=== PATIENT | male | born 1955 | race Caucasian/White ===

== ENCOUNTER 2018-02-04 16:18 | Inpatient (IN) | payer MEDICARE, MEDICAID ==
[2018-02-04] MEDS ORDERED: Docusate Sodium 100 MG Cap PO PRN (18:43)
[2018-02-04] MEDS ORDERED: Acetaminophen 325 MG Tab PO PRN (18:43)
[2018-02-04] MEDS ORDERED: [UNRECOGNIZED DRUG - OTHER] TOP PRN (18:49)
[2018-02-04] MEDS ORDERED: Hyoscyamine 0.125 MG Tab.SL PO PRN (18:58)
--- NOTE | 2018-02-04 18:58 | PCM.HP ---
H&P History of Present Illness - General Date of Service: 02/04/18 Admit Problem/Dx: Admission Diagnosis/Problem Admission Diagnosis/Problem Community acquired pneumonia Source of Information: Old Records, Provider History Limitations: Reports: Other (Patient is nonverbal, no staff present.) - History of Present Illness Initial Comments - Free Text/Narative: Patient is a 62-year-old male with severe developmental disabilities from the [facility] who was admitted for pneumonia today. The patient was seen by a Danni Louie at [place] on on 01/28/18 and chest x-ray showed a pneumonia of the left lower lobe. Patient was started on Augmentin and treated as an outpatient. He came back in today with no improvement in his cough or other symptoms and was referred to me for admission. When he presented on the , he had symptoms of congestion, productive cough and lethargy for 10 days. He appeared to be short of breath when lying flat and O2 sats were at 91% on room air. He was afebrile at that time. CBC at that time showed a normal white count of 6.2, hemoglobin 15.7, platelets 174. Chemistries had been done on 01/16 and were not repeated at that visit. Glucose was 93, sodium 143, potassium 4.7, chloride 104, CO2 31, BUN 23, creatinine 0.94, calcium 10, bilirubin less than 0.2, normal LFTs, albumin 3.9. Initial reading of the chest showed enlarged heart, pulmonary vasculature markedly prominent, interstitial markings prominent, CHF with pulmonary edema and question of infiltrate secondary to aspiration pneumonia or inhalation damage. Today's x-ray has not been read. I compared the 2 x-rays myself and the images are extremely poor quality, poorly penetrated, patient unable to take a deep breath, so I think it' s difficult to say whether there was an infiltrate or failure. However I do feel it is more consistent with a right infiltrate with underpenetration. Past medical history: #1 developmental disabilities with cerebral palsy. 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 Perineal dermatitis #11 lower extremity dependent edema #12 osteoporosis Medications are to be given in liquid or food forearm, we position every 2 hours during the night and every hour of 3 when in the wheelchair. Full staff assist to eat or drink. Looks like he has a. Diet with honey thickened liquids. Social history: Unknown other than the patient currently lives at this longterm. Family history: Unknown - Related Data Allergies/Adverse Reactions: Allergies Allergy/AdvReac Type Severity Reaction Status Date / Time adhesive Allergy Rash Verified 02/04/18 18:53 vicodin Allergy Cannot Uncoded 02/04/18 18:53 Remember Home Medications: Home Meds Anita/Min Oil/Jane/Wool Alcoh [Eucerin Creme] 1 applic TOP ASDIRECTED PRN 02/04 [History] Diazepam [Valium] 2 mg PO TID 02/04/18 [History] Hydrophilic Ointment [Aquaphilic Ointment] 1 applic TOP BID PRN 02/04/18 [ History] Hyoscyamine [Levsin] 0.25 mg PO TID PRN 02/04/18 [History] Listerine/Hydrogen Peroxide 1 applic TOP TID PRN 02/04/18 [History] Multivits w-Fe,Other Min/Lut [Theratrum Complete] 1 each PO DAILY 02/04/18 [ History] Na Phos,M-B/Na Phos,DI-B [Fleet Enema] 133 ml RC ASDIRECTED PRN 02/04/18 [ History] Polyethylene Glycol 3350 [MiraLAX] 17 gm PO DAILY 02/04/18 [History] Selenium Sulfide 1 applic TP ASDIRECTED PRN 02/04/18 [History] Sennosides/Docusate Sodium [Senna S Tablet] 2 each PO DAILY 02/04/18 [History] Sennosides/Docusate Sodium [Senna S Tablet] 4 each PO BEDTIME 02/04/18 [History] Triazolam 0.5 mg PO ASDIRECTED PRN 02/04/18 [History] Vits A and D/White Pet/Lanolin [A and D Ointment] 1 applic TOP ASDIRECTED PRN [History] traZODone 100 mg PO BEDTIME 02/04/18 [History] Past Medical History HEENT History: Reports: Other (See Below) Other HEENT History: astigmastism Cardiovascular History: Reports: Other (See Below) Other Cardiovascular History: mitral valve regurguration, grade2/6 pulmonary systolic murmur Respiratory History: Reports: Pneumonia, Recurrent Musculoskeletal History: Reports: Osteoporosis, Other (See Below) Other Musculoskeletal History: severe lumbar scollosis, quadriplegic. Hematologic History: Reports: Other (See Below) Other Hematologic History: hemachromatosis - Past Surgical History GI Surgical History: Reports: Other (See Below) Other GI Surgeries/Procedures: constipation Social & Family History - Tobacco Use Smoking Status *Q: Never Smoker Second Hand Smoke Exposure: No - Caffeine Use Caffeine Use: Reports: None - Recreational Drug Use Recreational Drug Use: No H&P Review of Systems - Review of Systems: Review Of Systems: ROS reveals no pertinent complaints other than HPI. General: Reports: ROS unobtainable (Patient nonverbal) Exam - Exam Exam: See Below - Vital Signs Vital Signs: Last Vital Signs Temp 35.6 C 02/04/18 16:19 Pulse 58 L 02/04/18 16:19 Resp 22 H 02/04/18 16:19 BP 117/89 02/04/18 16:19 Pulse Ox 90 L 02/04/18 16:19 Weight: 75.251 kg - Exam Quality Assessment: Supplemental Oxygen (Patient removed and will not tolerate.) General: Alert (Nonverbal.) HEENT: PERRLA, Other (Unable to examine as patient unable to cooperate.) Neck: Supple, Trachea Midline Lungs: Decreased Breath Sounds, Crackles, Rhonchi Cardiovascular: Regular Rate, Regular Rhythm (I don't appreciate any murmur) GI/Abdominal Exam: Normal Bowel Sounds, Soft, Non-Tender, No Distention Extremities: Other (Extremities are contracted and wasted but no bruising and skin health looks very good. No sores on the buttocks or genitals.) Psychiatric: Alert - Patient Data Lab Results Last 24 hrs: Lab from here pending. *Q Meaningful Use (ADM) - VTE *Q VTE Criteria *Q: - Stroke *Q Stroke Criteria *Q: - AMI *Q AMI Criteria *Q: - Problem List (1) Aspiration pneumonia SNOMED Code(s): 751250039 ICD Code: J69.0 - PNEUMONITIS DUE TO INHALATION OF FOOD AND VOMIT Status: Acute Current Visit: Yes Problem Details: I suspect based on the patient's clinical presentation and history that he has an aspiration pneumonia. I'm going to cover him with Zosyn. I'd like a swallow evaluation to better assess whether or not he is safe to eat or if he is continuously aspirating. 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 DuoNeb's. No steroids for the time being. (2) Mental retardation SNOMED Code(s): 717896923 ICD Code: F79 - UNSPECIFIED INTELLECTUAL DISABILITIES Status: Acute Current Visit: Yes Problem Details: Staff will work with the patient, we may need one-on-one support while he is here in the hospital as there is no one from the longterm here. (3) CP (cerebral palsy), spastic, quadriplegic SNOMED Code(s): 90199065 ICD Code: G80.0 - SPASTIC QUADRIPLEGIC CEREBRAL PALSY Status: Acute Current Visit: Yes Problem Details: Continue home medications. (4) DVT prophylaxis SNOMED Code(s): 651309637 ICD Code: [id number] - Status: Acute Current Visit: Yes Problem Details: SCDs, Lovenox, PT and OT to evaluate and treat to mobilize as much as possible while here in the hospital. Problem List Initiated/Reviewed/Updated: Yes Orders Last 24hrs: Active Orders 24 hr Category Date Time Status Admission Status [Patient Status] [ADT] Routine ADT 02/04/18 16:19 Active Height and Weight [RC] DAILY Care 02/04/18 18:43 Ordered Intake and Output [RC] QSHIFT Care 02/04/18 18:45 Ordered Notify Provider Vital Signs [RC] ASDIRECTED Care 02/04/18 18:45 Ordered Nursing Bedside Swallow Screen [RC] ASDIRECTED Care 02/04/18 18:42 Ordered Oxygen Therapy [RC] PRN Care 02/04/18 18:43 Ordered RT Aerosol Therapy [RC] ASDIRECTED Care 02/04/18 18:47 Ordered Up With Assistance [RC] ASDIRECTED Care 02/04/18 18:43 Ordered VTE/DVT Education [RC] Per Unit Routine Care 02/04/18 18:43 Ordered Vital Signs [RC] Q4H Care 02/04/18 18:43 Ordered OT Evaluation and Treatment [CONS] Routine Cons 02/04/18 18:43 Ordered PT Evaluation and Treatment [CONS] Routine Cons 02/04/18 18:43 Ordered Consistent Carbohydrate Diet [DIET] Diet 02/04/18 Breakfast Ordered Modified Barium Swallow Study [Swallowing Function w Exams 02/04/18 18:42 Ordered Video] [CR] Routine CBC WITH AUTO DIFF [HEME] AM Lab 02/05/18 05:11 Ordered CBC WITH AUTO DIFF [HEME] Stat Lab 02/04/18 18:43 Ordered COMPREHENSIVE METABOLIC PN,CMP [CHEM] AM Lab 02/05/18 05:11 Ordered COMPREHENSIVE METABOLIC PN,CMP [CHEM] Stat Lab 02/04/18 18:43 Ordered CULTURE SPUTUM + SMEAR [RM] Stat Lab 02/04/18 18:43 Ordered Acetaminophen [Tylenol] Med 02/04/18 18:43 Ordered 650 mg PO Q4H PRN Albuterol/Ipratropium [DuoNeb 3.0-0.5 MG/3 ML] Med 02/04/18 21:00 Ordered 3 ml NEB QIDRT Anita/Min Oil/Jane/Wool Alcoh [Eucerin Creme] Med 02/04/18 18:49 Ordered 1 applic TOP ASDIRECTED PRN Diazepam [Valium] Med 02/04/18 21:00 Ordered 2 mg PO TID Docusate Sodium [Colace] Med 02/04/18 18:43 Ordered 100 mg PO BID PRN Docusate Sodium/Sennosides [Senna Plus] Med 02/05/18 09:00 Ordered 2 each PO DAILY Docusate Sodium/Sennosides [Senna Plus] Med 02/04/18 21:00 Ordered 4 each PO BEDTIME Enoxaparin [Lovenox] Med 02/04/18 18:45 Ordered 40 mg SUBCUT Q24H Hydrophilic Ointment [Aquaphilic Ointment] Med 02/04/18 18:49 Ordered 1 applic TOP BID PRN Hyoscyamine [Levsin] Med 02/04/18 18:49 Ordered 0.25 mg PO TID PRN Polyethylene Glycol 3350 [MiraLAX] Med 02/05/18 09:00 Ordered 17 gm PO DAILY Sodium Chloride 0.9% [Saline Flush] Med 02/04/18 18:43 Ordered 10 ml FLUSH ASDIRECTED PRN traZODone Med 02/04/18 21:00 Ordered 100 mg PO BEDTIME Saline Lock Insert [OM.PC] Routine Oth 02/04/18 18:43 Ordered Sequential Compression Device [OM.PC] Per Unit Routine Oth 02/04/18 18:45 Ordered Resuscitation Status Routine Resus Stat 02/04/18 18:43 Ordered Medication Orders Acetaminophen (Tylenol) 650 mg PO Q4H PRN PRN Reason: Pain (Mild 1-3)/fever Albuterol/Ipratropium (Duoneb 3.0-0.5 Mg/3 Ml) 3 ml NEB QIDRT CHELO Diazepam (Valium) 2 mg PO TID CHELO Docusate Sodium (Colace) 100 mg PO BID PRN PRN Reason: Constipation Enoxaparin Sodium (Lovenox) 40 mg SUBCUT Q24H CHELO Hydrophilic Base (Aquaphilic Ointment) gm TOP BID PRN PRN Reason: RASH ON CHEST/BACK Non-Formulary Medication (Anita/Min Oil/Jane/Wool Alcoh [Eucerin Creme]) 1 applic TOP ASDIRECTED PRN PRN Reason: RASH GROIN/BUTTOCKS Non-Formulary Medication (Hyoscyamine [Levsin]) 0.25 mg PO TID PRN PRN Reason: GAS SPASMS Polyethylene Glycol (Miralax) 17 gm PO DAILY CHELO Senna/Docusate Sodium (Senna Plus) tab PO DAILY CHELO Senna/Docusate Sodium (Senna Plus) tab PO BEDTIME [facility] Sodium Chloride (Saline Flush) 10 ml FLUSH ASDIRECTED PRN PRN Reason: Keep Vein Open Trazodone HCl (Trazodone) 100 mg PO BEDTIME [facility] Assessment/Plan Comment:: CODE STATUS per paperwork from [facility] states that patient is a DNR/DNI.
[2018-02-04] MEDS: traZODone 100 MG Tab PO SCH (20:19)
[2018-02-04] MEDS: Diazepam 2 MG Tab PO SCH (20:20)
[2018-02-04] MEDS: Enoxaparin 40 MG/0.4 ML Syringe SUBCUT SCH (20:20)
[2018-02-04] MEDS: Albuterol/Ipratropium 3.0-0.5 MG/3 ML Neb Soln NEB SCH (20:20)
[2018-02-04] MEDS: Piperacillin/Tazobactam 3.375 GM in Sodium Chloride 0.9% 50 ML IV SCH (20:20)
[2018-02-04] MEDS: Sodium Chloride 0.9% 10 ML Syringe FLUSH PRN (20:58)
[2018-02-04] MEDS ORDERED: Sodium Chloride 0.9% 500 ML IV ONE ×2 (22:45→23:15)
[2018-02-05] MEDS: Piperacillin/Tazobactam 3.375 GM in Sodium Chloride 0.9% 50 ML IV SCH ×4 (01:58→20:00)
[2018-02-05] MEDS: Sodium Chloride 0.9% 10 ML Syringe FLUSH PRN ×4 (02:11→19:56)
[2018-02-05] MEDS: Albuterol/Ipratropium 3.0-0.5 MG/3 ML Neb Soln NEB SCH ×4 (07:05→20:06)
[2018-02-05] MEDS ORDERED: Sodium Chloride 0.9% 1,000 ML IV SCH (07:15)
[2018-02-05] MEDS ORDERED: Mineral Oil/White Petrolatum Crm 113 GM Jar TOP PRN (08:45)
[2018-02-05] MEDS: Polyethylene Glycol 3350 Powder 17 GM Packet PO SCH (09:05)
[2018-02-05] MEDS: Diazepam 2 MG Tab PO SCH ×3 (09:08→20:16)
--- NOTE | 2018-02-05 11:51 | PCM.PN ---
- General Info Date of Service: 02/05/18 Subjective Update: Per nursing staff, patient has done well in the last 12 hours. He did pull out his IV this morning. Took nectar thickened liquids with some coughing. Does not appear to be in pain. - Patient Data Vitals - Most Recent: Last Vital Signs Temp 35.1 C L 02/05/18 07:35 Pulse 74 02/05/18 07:35 Resp 22 H 02/05/18 07:35 BP 116/77 02/05/18 07:35 Pulse Ox 95 02/05/18 07:35 Weight - Most Recent: 73.573 kg I&O - Last 24 Hours: Intake & Output 02/04/18 02/05/18 02/05/18 22:59 06:59 14:59 Intake Total 0 50 Balance 0 50 Lab Results Last 24 Hours: Laboratory Results - last 24 hr 02/04/18 02/04/18 02/05/18 Range/Units 19:10 19:10 06:40 WBC 8.9 6.1 (4.5-12.0) X10-3/uL RBC 5.12 4.72 (4.30-5.75) x10(6)uL Hgb 15.8 H 14.5 (11.5-15.5) g/dL Hct 47.5 43.7 (30.0-51.3) % MCV 92.7 92.7 (80-96) fL MCH 30.7 30.8 (27.7-33.6) pg MCHC 33.2 33.3 (32.2-35.4) g/dL RDW 14.5 14.2 (11.5-15.5) % Plt Count 188 159 (125-369) X10(3)uL MPV 9.3 9.1 (7.4-10.4) fL Neut % (Auto) 74.6 71.0 (46-82) % Lymph % (Auto) 17.4 22.6 (13-37) % [place] % (Auto) 5.3 4.3 (4-12) % Eos % (Auto) 2 2 (1.0-5.0) % Baso % (Auto) 1 0 (0-2) % Neut # (Auto) 6.6 4.3 (1.6-8.3) # Lymph # (Auto) 1.5 1.4 (0.6-5.0) # [place] # (Auto) 0.5 0.3 (0.0-1.3) # Eos # (Auto) 0.2 0.1 (0.0-0.8) # Baso # (Auto) 0.1 0.0 (0.0-0.2) # Sodium 143 (135-145) mmol/L Potassium 5.5 H (3.5-5.3) mmol/L Chloride 104 (100-110) mmol/L Carbon Dioxide 33 H (21-32) mmol/L BUN 21 H (7-18) mg/dL Creatinine 0.8 (0.70-1.30) mg/dL Est Cr Clr Drug Dosing 71.73 mL/min Estimated GFR (MDRD) > 60 (>60) BUN/Creatinine Ratio 26.3 H (9-20) Glucose 68 L (80-116) mg/dL Calcium 9.8 (8.6-10.2) mg/dL Total Bilirubin 0.1 (0.1-1.3) mg/dL AST 30 H (5-25) IU/L ALT 53 H (12-36) U/L Alkaline Phosphatase 98 (56-112) IU/L Total Protein 7.5 (6.0-8.0) g/dL Albumin 3.3 (3.2-4.6) g/dL Globulin 4.2 g/dL Albumin/Globulin Ratio 0.8 03//18 Range/Units 06:40 WBC (4.5-12.0) X10-3/uL RBC (4.30-5.75) x10(6)uL Hgb (11.5-15.5) g/dL Hct (30.0-51.3) % MCV (80-96) fL MCH (27.7-33.6) pg MCHC (32.2-35.4) g/dL RDW (11.5-15.5) % Plt Count (125-369) X10(3)uL MPV (7.4-10.4) fL Neut % (Auto) (46-82) % Lymph % (Auto) (13-37) % [place] % (Auto) (4-12) % Eos % (Auto) (1.0-5.0) % Baso % (Auto) (0-2) % Neut # (Auto) (1.6-8.3) # Lymph # (Auto) (0.6-5.0) # Kent # (Auto) (0.0-1.3) # Eos # (Auto) (0.0-0.8) # Baso # (Auto) (0.0-0.2) # Sodium 142 (135-145) mmol/L Potassium 4.5 D (3.5-5.3) mmol/L Chloride 106 (100-110) mmol/L Carbon Dioxide 29 (21-32) mmol/L BUN 15 (7-18) mg/dL Creatinine 0.8 (0.70-1.30) mg/dL Est Cr Clr Drug Dosing 71.73 mL/min Estimated GFR (MDRD) > 60 (>60) BUN/Creatinine Ratio 18.8 (9-20) Glucose 82 (80-116) mg/dL Calcium 9.4 (8.6-10.2) mg/dL Total Bilirubin 0.1 (0.1-1.3) mg/dL AST 25 D (5-25) IU/L ALT 46 H D (12-36) U/L Alkaline Phosphatase 87 (56-112) IU/L Total Protein 6.6 (6.0-8.0) g/dL Albumin 2.8 L (3.2-4.6) g/dL Globulin 3.8 g/dL Albumin/Globulin Ratio 0.7 Med Orders - Current: Current Medications Acetaminophen (Tylenol) 650 mg PO Q4H PRN PRN Reason: Pain (Mild 1-3)/fever Albuterol/Ipratropium (Duoneb 3.0-0.5 Mg/3 Ml) 3 ml NEB QIDRT [facility] Last Admin: 02/05/18 11:28 Dose: 3 ml Diazepam (Valium) 2 mg PO TID [facility] Last Admin: 02/05/18 09:08 Dose: 2 mg Docusate Sodium (Colace) 100 mg PO BID PRN PRN Reason: Constipation Enoxaparin Sodium (Lovenox) 40 mg SUBCUT Q24H [facility] Last Admin: 02/04/18 20:20 Dose: 40 mg Hydrophilic Base (Aquaphilic Ointment) 0 gm TOP BID PRN PRN Reason: RASH ON CHEST/BACK Hyoscyamine (Hyomax-Sl) 0.25 mg PO TID PRN PRN Reason: GAS SPASMS Piperacillin Sod/Tazobactam (Sod 3.375 gm/ Sodium Chloride) 50 mls @ 100 mls/ hr IV Q6H [facility] Last Admin: 02/05/18 08:50 Dose: 100 mls/hr Sodium Chloride (Normal Saline) 1,000 mls @ 100 mls/hr IV ASDIRECTED CHELO Stop: 02/05/18 17:14 Last Admin: 02/05/18 07:20 Dose: 100 mls/hr Mineral Oil/White Petrolatum (Hydrocerin Crm) 0 gm TOP ASDIRECTED PRN PRN Reason: GROIN/BUTTOCKS RASH Polyethylene Glycol (Miralax) 17 gm PO DAILY [facility] Last Admin: 02/05/18 09:05 Dose: 17 gm Senna/Docusate Sodium (Senna Plus) 2 tab PO DAILY [facility] Last Admin: 02/05/18 09:06 Dose: 2 tab Senna/Docusate Sodium (Senna Plus) 4 tab PO BEDTIME [facility] Last Admin: 02/04/18 20:19 Dose: 4 tab Sodium Chloride (Saline Flush) 10 ml FLUSH ASDIRECTED PRN PRN Reason: Keep Vein Open Last Admin: 02/05/18 10:30 Dose: 10 ml Trazodone HCl (Trazodone) 100 mg PO BEDTIME [facility] Last Admin: 02/04/18 20:19 Dose: 100 mg Discontinued Medications Sodium Chloride (Normal Saline) 500 mls @ 999 mls/hr IV .BOLUS ONE Stop: 02/04/18 23:15 Last Admin: 02/05/18 00:51 Dose: Not Given Sodium Chloride (Normal Saline) 500 mls @ 998.89 mls/hr IV .BOLUS ONE Stop: 02/04/18 23:45 Last Admin: 02/04/18 23:00 Dose: 998.89 mls/hr - Exam General: Alert, Cooperative, No Acute Distress HEENT: Pupils Equal, Pupils Reactive Neck: Supple Lungs: Decreased Breath Sounds, Crackles (The patient's lungs are much clearer to auscultation. Anteriorly on the left he has some groaning but no rhonchi. Posteriorly he has crackles in the base on the right, none on the left, no wheezing, no rhonchi) Cardiovascular: Regular Rate, Regular Rhythm GI/Abdominal Exam: Normal Bowel Sounds, Soft, Non-Tender (Moderately distended. Patient does have a history of constipation. Did have a bowel movement last night.) Extremities: Normal Inspection (Normal for this patient. No edema, contractures , poor muscle tone.), No Pedal Edema Skin: Warm, Dry, Intact Psy/Mental Status: Alert - Problem List & Annotations (1) Aspiration pneumonia SNOMED Code(s): 332278166 Code(s): J69.0 - PNEUMONITIS DUE TO INHALATION OF FOOD AND VOMIT Status: Acute Current Visit: Yes Annotation/Comment:: Patient has responded very well to Zosyn. Sounds like with able to do the swallow evaluation on Saturday to assess for continuous microaspiration. If the patient is continuously aspirating then comfort cares would be more appropriate than continued rehospitalization unless family opts for feeding tube. I'd also like to get a CT chest without contrast as x-ray quality was so poor it's hard to appreciate whether or not the patient has fluid or infiltrate. (2) Mental retardation SNOMED Code(s): 675829698 Code(s): F79 - UNSPECIFIED INTELLECTUAL DISABILITIES Status: Acute Current Visit: Yes Annotation/Comment:: Staff will work with the patient, we may need one-on-one support while he is here in the hospital as there is no one from the [facility] here. (3) CP (cerebral palsy), spastic, quadriplegic SNOMED Code(s): 31176208 Code(s): G80.0 - SPASTIC QUADRIPLEGIC CEREBRAL PALSY Status: Acute Current Visit: Yes Annotation/Comment:: Continue home medications. PT and OT to work with range of motion exercises. (4) DVT prophylaxis SNOMED Code(s): 218120562 Code(s): WRS6174 - Status: Acute Current Visit: Yes Annotation/Comment :: SCDs, Lovenox, PT and OT to evaluate and treat to mobilize as much as possible while here in the hospital. - Problem List Review Problem List Initiated/Reviewed/Updated: Yes - My Orders Last 24 Hours: My Active Orders 02/04/18 16:19 Admission Status [Patient Status] [ADT] Routine 02/04/18 18:42 Modified Barium Swallow Study [Swallowing Function w Video] [CR] Routine 02/04/18 18:43 Height and Weight [RC] 06 Oxygen Therapy [RC] PRN Up With Assistance [RC] ASDIRECTED Vital Signs [RC] 20,00,04,08,12,16 OT Evaluation and Treatment [CONS] Routine PT Evaluation and Treatment [CONS] Routine CULTURE SPUTUM + SMEAR [RM] Stat Acetaminophen [Tylenol] 650 mg PO Q4H PRN Docusate Sodium [Colace] 100 mg PO BID PRN Sodium Chloride 0.9% [Saline Flush] 10 ml FLUSH ASDIRECTED PRN Saline Lock Insert [OM.PC] Routine Resuscitation Status Routine 02/04/18 18:45 Intake and Output [RC] 06,14,22 Notify Provider Vital Signs [RC] ASDIRECTED Sequential Compression Device [OM.PC] Per Unit Routine 02/04/18 18:47 RT Aerosol Therapy [RC] ASDIRECTED 02/04/18 18:49 Hydrophilic Ointment [Aquaphilic Ointment] 0 gm TOP BID PRN 02/04/18 18:58 Hyoscyamine [Hyomax-SL] 0.25 mg PO TID PRN 02/04/18 20:00 Enoxaparin [Lovenox] 40 mg SUBCUT Q24H Piperacillin/Tazobactam [Zosyn] 3.375 gm Sodium Chloride 0.9% [Normal Saline] 50 ml IV Q6H 02/04/18 21:00 Albuterol/Ipratropium [DuoNeb 3.0-0.5 MG/3 ML] 3 ml NEB QIDRT Diazepam [Valium] 2 mg PO TID Docusate Sodium/Sennosides [Senna Plus] 4 tab PO BEDTIME traZODone 100 mg PO BEDTIME 02/05/18 07:15 Sodium Chloride 0.9% [Normal Saline] 1,000 ml IV ASDIRECTED 02/05/18 08:45 Mineral Oil/Petrolatum,White [Hydrocerin Crm] 0 gm TOP ASDIRECTED PRN 02/05/18 09:00 Docusate Sodium/Sennosides [Senna Plus] 2 tab PO DAILY Polyethylene Glycol 3350 [MiraLAX] 17 gm PO DAILY 02/05/18 11:43 Chest wo Cont [CT] Routine - Plan Plan:: CODE STATUS per paperwork from [facility] states that patient is a DNR/DNI.
[2018-02-05] MEDS: Enoxaparin 40 MG/0.4 ML Syringe SUBCUT SCH (20:01)
[2018-02-05] MEDS: traZODone 100 MG Tab PO SCH (20:14)
[2018-02-06] MEDS: Piperacillin/Tazobactam 3.375 GM in Sodium Chloride 0.9% 50 ML IV SCH ×4 (01:33→20:16)
[2018-02-06] MEDS: Sodium Chloride 0.9% 10 ML Syringe FLUSH PRN ×3 (01:39→13:31)
[2018-02-06] MEDS: Albuterol/Ipratropium 3.0-0.5 MG/3 ML Neb Soln NEB SCH ×4 (07:16→20:10)
[2018-02-06] MEDS: Polyethylene Glycol 3350 Powder 17 GM Packet PO SCH (08:08)
[2018-02-06] MEDS: Diazepam 2 MG Tab PO SCH ×3 (08:13→20:07)
--- NOTE | 2018-02-06 10:01 | PCM.PN ---
- General Info Date of Service: 02/06/18 Subjective Update: Patient was stable overnight. Per staff, with feeding he does have some coughing. Patient is smiling and seems cheerful this morning. - Review of Systems General: Reports: Other (Unable to obtain due to nonverbal status.) - Patient Data Vitals - Most Recent: Last Vital Signs Temp 36.3 C 02/06/18 04:00 Pulse 82 02/06/18 04:00 Resp 20 02/06/18 04:00 BP 122/76 02/06/18 04:00 Pulse Ox 93 L 02/06/18 04:00 Weight - Most Recent: 75.07 kg I&O - Last 24 Hours: Intake & Output 02/05/18 02/06/18 02/06/18 22:59 06:59 14:59 Intake Total 50 200 50 Balance 50 200 50 Med Orders - Current: Current Medications Acetaminophen (Tylenol) 650 mg PO Q4H PRN PRN Reason: Pain (Mild 1-3)/fever Albuterol/Ipratropium (Duoneb 3.0-0.5 Mg/3 Ml) 3 ml NEB QIDRT [facility] Last Admin: 02/06/18 07:16 Dose: 3 ml Diazepam (Valium) 2 mg PO TID [facility] Last Admin: 02/06/18 08:13 Dose: 2 mg Docusate Sodium (Colace) 100 mg PO BID PRN PRN Reason: Constipation Enoxaparin Sodium (Lovenox) 40 mg SUBCUT Q24H [facility] Last Admin: 02/05/18 20:01 Dose: 40 mg Hydrophilic Base (Aquaphilic Ointment) 0 gm TOP BID PRN PRN Reason: RASH ON CHEST/BACK Hyoscyamine (Hyomax-Sl) 0.25 mg PO TID PRN PRN Reason: GAS SPASMS Piperacillin Sod/Tazobactam (Sod 3.375 gm/ Sodium Chloride) 50 mls @ 100 mls/ hr IV Q6H [facility] Last Admin: 02/06/18 07:26 Dose: 100 mls/hr Mineral Oil/White Petrolatum (Hydrocerin Crm) 0 gm TOP ASDIRECTED PRN PRN Reason: GROIN/BUTTOCKS RASH Polyethylene Glycol (Miralax) 17 gm PO DAILY [facility] Last Admin: 02/06/18 08:08 Dose: 17 gm Senna/Docusate Sodium (Senna Plus) 2 tab PO DAILY [facility] Last Admin: 02/06/18 08:09 Dose: 2 tab Senna/Docusate Sodium (Senna Plus) 4 tab PO BEDTIME [facility] Last Admin: 02/05/18 20:14 Dose: 4 tab Sodium Chloride (Saline Flush) 10 ml FLUSH ASDIRECTED PRN PRN Reason: Keep Vein Open Last Admin: 02/06/18 07:55 Dose: 10 ml Trazodone HCl (Trazodone) 100 mg PO BEDTIME [facility] Last Admin: 02/05/18 20:14 Dose: 100 mg Discontinued Medications Sodium Chloride (Normal Saline) 500 mls @ 999 mls/hr IV .BOLUS ONE Stop: 02/04/18 23:15 Last Admin: 02/05/18 00:51 Dose: Not Given Sodium Chloride (Normal Saline) 500 mls @ 998.89 mls/hr IV .BOLUS ONE Stop: 02/04/18 23:45 Last Admin: 02/04/18 23:00 Dose: 998.89 mls/hr Sodium Chloride (Normal Saline) 1,000 mls @ 100 mls/hr IV ASDIRECTED [facility] Stop: 02/05/18 17:14 Last Admin: 02/05/18 07:20 Dose: 100 mls/hr - Exam General: Alert, Cooperative (Smiling and cheerful in the room with his caregiver.) HEENT: Pupils Equal, Pupils Reactive Neck: Supple Lungs: Crackles, Rhonchi Cardiovascular: Regular Rate, Regular Rhythm, No Murmurs GI/Abdominal Exam: Normal Bowel Sounds, Soft, Non-Tender, Distended Back Exam: Normal Inspection Extremities: Normal Inspection, No Pedal Edema (Unchanged from prior) Psy/Mental Status: Alert - Problem List & Annotations (1) Aspiration pneumonia SNOMED Code(s): 008424351 Code(s): J69.0 - PNEUMONITIS DUE TO INHALATION OF FOOD AND VOMIT Status: Acute Current Visit: Yes Annotation/Comment:: CTA showed a thin-walled cavitary lesion suggestive of postinflammatory pneumatocele. I contacted Dr. Dunlap pulmonary at [facility] and he recommended proceeding with echocardiogram as already ordered for tomorrow, continue Zosyn while the patient is in the hospital, discharge him on 3-4 weeks Augmentin post discharge and repeat CT scan in 4 weeks. He felt this finding was likely from a necrotizing pneumonia. This is likely secondary to aspiration. Patient will have swallow evaluation done this afternoon. (2) Mental retardation SNOMED Code(s): 859113267 Code(s): F79 - UNSPECIFIED INTELLECTUAL DISABILITIES Status: Acute Current Visit: Yes Annotation/Comment:: Nursing to do range of motion exercises, continue close monitoring for safety. Up in chair with position changes every 2 hours. (3) CP (cerebral palsy), spastic, quadriplegic SNOMED Code(s): 50686187 Code(s): G80.0 - SPASTIC QUADRIPLEGIC CEREBRAL PALSY Status: Acute Current Visit: Yes Annotation/Comment:: Continue home medications. Nursing to work with range of motion exercises. (4) DVT prophylaxis SNOMED Code(s): 065589923 Code(s): HJA8085 - Status: Acute Current Visit: Yes Annotation/Comment :: SCDs, Lovenox, PT and OT to evaluate and treat to mobilize as much as possible while here in the hospital. - Problem List Review Problem List Initiated/Reviewed/Updated: Yes - My Orders Last 24 Hours: My Active Orders 02/05/18 09:00 Docusate Sodium/Sennosides [Senna Plus] 2 tab PO DAILY Polyethylene Glycol 3350 [MiraLAX] 17 gm PO DAILY 02/05/18 11:43 Chest wo Cont [CT] Routine 02/07/18 07:00 Echo Comp wo Cont [US] Timed - Plan Plan:: CODE STATUS per paperwork from [facility] states that patient is a DNR/DNI.
[2018-02-06] MEDS: Enoxaparin 40 MG/0.4 ML Syringe SUBCUT SCH (20:01)
[2018-02-06] MEDS: traZODone 100 MG Tab PO SCH (20:03)
[2018-02-07] MEDS: Sodium Chloride 0.9% 10 ML Syringe FLUSH PRN ×2 (01:18→08:21)
[2018-02-07] MEDS: Piperacillin/Tazobactam 3.375 GM in Sodium Chloride 0.9% 50 ML IV SCH ×2 (01:21→08:21)
[2018-02-07] MEDS: Albuterol/Ipratropium 3.0-0.5 MG/3 ML Neb Soln NEB SCH (07:09)
[2018-02-07] MEDS: Polyethylene Glycol 3350 Powder 17 GM Packet PO SCH (08:42)
[2018-02-07] MEDS: Diazepam 2 MG Tab PO SCH (08:42)
--- NOTE | 2018-02-07 09:07 | PCM.PN ---
- General Info Date of Service: 02/07/18 Subjective Update: Plan is seated up in the chair with oxygen alert smiling. He is nonverbal. There is no report of fever or cough or aspiration overnight. - Review of Systems Gastrointestinal: Reports: No Symptoms Genitourinary: Reports: No Symptoms Musculoskeletal: Reports: No Symptoms - Patient Data Vitals - Most Recent: Last Vital Signs Temp 96.0 F 02/07/18 04:00 Pulse 85 02/07/18 07:20 Resp 20 02/07/18 04:00 BP 114/79 02/07/18 04:00 Pulse Ox 90 L 02/07/18 07:20 Weight - Most Recent: 74.026 kg I&O - Last 24 Hours: Intake & Output 02/06/18 02/07/18 02/07/18 22:59 06:59 14:59 Intake Total 400 Balance 400 Med Orders - Current: Current Medications Acetaminophen (Tylenol) 650 mg PO Q4H PRN PRN Reason: Pain (Mild 1-3)/fever Albuterol/Ipratropium (Duoneb 3.0-0.5 Mg/3 Ml) 3 ml NEB QIDRT [facility] Last Admin: 02/07/18 07:09 Dose: 3 ml Diazepam (Valium) 2 mg PO TID [facility] Last Admin: 02/07/18 08:42 Dose: 2 mg Docusate Sodium (Colace) 100 mg PO BID PRN PRN Reason: Constipation Enoxaparin Sodium (Lovenox) 40 mg SUBCUT Q24H [facility] Last Admin: 02/06/18 20:01 Dose: 40 mg Hydrophilic Base (Aquaphilic Ointment) 0 gm TOP BID PRN PRN Reason: RASH ON CHEST/BACK Hyoscyamine (Hyomax-Sl) 0.25 mg PO TID PRN PRN Reason: GAS SPASMS Piperacillin Sod/Tazobactam (Sod 3.375 gm/ Sodium Chloride) 50 mls @ 100 mls/ hr IV Q6H [facility] Last Admin: 02/07/18 08:21 Dose: 100 mls/hr Mineral Oil/White Petrolatum (Hydrocerin Crm) 0 gm TOP ASDIRECTED PRN PRN Reason: GROIN/BUTTOCKS RASH Polyethylene Glycol (Miralax) 17 gm PO DAILY [facility] Last Admin: 02/07/18 08:42 Dose: 17 gm Senna/Docusate Sodium (Senna Plus) 2 tab PO DAILY [facility] Last Admin: 02/07/18 08:42 Dose: 2 tab Senna/Docusate Sodium (Senna Plus) 4 tab PO BEDTIME [facility] Last Admin: 02/06/18 20:02 Dose: 4 tab Sodium Chloride (Saline Flush) 10 ml FLUSH ASDIRECTED PRN PRN Reason: Keep Vein Open Last Admin: 02/07/18 08:21 Dose: 10 ml Trazodone HCl (Trazodone) 100 mg PO BEDTIME [facility] Last Admin: 02/06/18 20:03 Dose: 100 mg Discontinued Medications Sodium Chloride (Normal Saline) 500 mls @ 999 mls/hr IV .BOLUS ONE Stop: 02/04/18 23:15 Last Admin: 02/05/18 00:51 Dose: Not Given Sodium Chloride (Normal Saline) 500 mls @ 998.89 mls/hr IV .BOLUS ONE Stop: 02/04/18 23:45 Last Admin: 02/04/18 23:00 Dose: 998.89 mls/hr Sodium Chloride (Normal Saline) 1,000 mls @ 100 mls/hr IV ASDIRECTED [facility] Stop: 02/05/18 17:14 Last Admin: 02/05/18 07:20 Dose: 100 mls/hr - Exam Quality Assessment: No: Supplemental Oxygen General: Alert HEENT: Pupils Equal Neck: Supple Lungs: Clear to Auscultation - Problem List & Annotations (1) Aspiration pneumonia SNOMED Code(s): 742555630 Code(s): J69.0 - PNEUMONITIS DUE TO INHALATION OF FOOD AND VOMIT Status: Acute Current Visit: Yes Annotation/Comment:: CTA showed a thin-walled cavitary lesion suggestive of postinflammatory pneumatocele. I contacted Dr. Dunlap pulmonary at [facility] and he recommended proceeding with echocardiogram as already ordered for tomorrow, continue Zosyn while the patient is in the hospital, discharge him on 3-4 weeks Augmentin post discharge and repeat CT scan in 4 weeks. He felt this finding was likely from a necrotizing pneumonia. This is likely secondary to aspiration. Patient will have swallow evaluation done this afternoon. (2) CP (cerebral palsy), spastic, quadriplegic SNOMED Code(s): 15670060 Code(s): G80.0 - SPASTIC QUADRIPLEGIC CEREBRAL PALSY Status: Acute Current Visit: Yes Annotation/Comment:: Continue home medications. Nursing to work with range of motion exercises. (3) Mental retardation SNOMED Code(s): 222179199 Code(s): F79 - UNSPECIFIED INTELLECTUAL DISABILITIES Status: Acute Current Visit: Yes Annotation/Comment:: Nursing to do range of motion exercises, continue close monitoring for safety. Up in chair with position changes every 2 hours. - Problem List Review Problem List Initiated/Reviewed/Updated: Yes - My Orders Last 24 Hours: My Active Orders 02/07/18 08:52 Echo Comp wo Cont [US] Routine - Plan Plan:: I will discharge the patient home. My understanding is that the POA are not interested in aggressive measures. I will discharge home on Augmentin 87 fundus twice a day for 10 days. Follow-up appointment recommended next week.
--- NOTE | 2018-02-07 09:58 | DISCH ---
DISCHARGE DATE: 02/07/2018 REASON FOR ADMISSION: 1. Aspiration pneumonia. 2. Mental retardation. 3. Cerebral palsy. DISCHARGE DIAGNOSES: 1. Aspiration pneumonia. 2. Mental retardation. 3. Cerebral palsy. CONSULTATION: Pulmonology on the telephone, Ignacio Baldwingo. PROCEDURES: Swallow evaluation. Details recorded that he can have honey thickened liquid diet. BRIEF HISTORY: This is a 62-year-old male with cerebral palsy, mental retardation, was brought in with shortness of breath and cough. A CT revealed a mass that was thought to be necrotizing pneumonia, probably aspiration. After consultation with Pulmonology, the patient was placed on Zosyn, improved, and recommendation was made to do a CT in 4 weeks. I discharged him home after he came back to his baseline on Augmentin 875 mg twice a day for 1 week, to have a CT as an outpatient, to evaluate the pneumatocele or cavitary lesion suggested on the CT. Please note that I sent him home on his regular medications with the exception of Augmentin. I spent more than 35 minutes in the discharge of the patient. /[id number] OSMANI/SURI
--- NOTE | 2018-02-07 11:06 | CR ---
INDICATION: Pneumonia, question dysphagia. SWALLOWING FUNCTION WITH VIDEOFLUOROSCOPY: 1 minute 42 seconds videofluoroscopy time with DVD recording and various barium-tinged meals were utilized in evaluating the swallowing mechanism. No evidence of penetration or aspiration was identified. There is noted spillage, but with rapid follow-through of the swallowing mechanism and no retention in the valleculae or piriform sinuses. IMPRESSION: Except for spillage, no abnormality of the swallowing mechanism is identified - no penetration or aspiration is seen. MTDD
== END 2018-02-07 10:55 | DRG 177 ==
LOC: FB.MS 16:18
PROVIDERS: ADMIT Family Medicine; ATTEND Family Medicine
DX: J69.0 Pneumonitis due to inhalation of food and vomit (principal); G80.0 Spastic quadriplegic cerebral palsy; M41.9 Scoliosis, unspecified; K05.10 Chronic gingivitis, plaque induced; K05.30 Chronic periodontitis, unspecified; E83.118 Other hemochromatosis; L30.8 Other specified dermatitis; R60.9 Edema, unspecified; M81.0 Age-related osteoporosis without current pathological fracture; Z66 Do not resuscitate; F79 Unspecified intellectual disabilities; Z87.01 Personal history of pneumonia (recurrent); Z51.5 Encounter for palliative care; Z79.2 Long term (current) use of antibiotics; Z88.8 Allergy status to other drugs, medicaments and biological substances; Z91.048 Other nonmedicinal substance allergy status; J98.4 Other disorders of lung
CPT/HCPCS: 36415; 71250; 74230; 80053; 85025; 92611-GN; 94640; A9270; A9270-GY; J1650; J2543; J7040; J7050; J7620